=== PATIENT | male | born 1975 | race Hispanic/Latino ===

== ENCOUNTER 2022-05-22 15:46 | Emergency (ER) | payer SELFPAY ==
[2022-05-22] MEDS ORDERED: Boostrix 0.5 ML (Tdap) VIAL (>/=7 yrs of age) ONE (16:38)
[2022-05-22] MEDS ORDERED: Ketorolac Tromethamine 60 MG/2 ML VIAL ONE (16:38)
[2022-05-22] MEDS ORDERED: Bacitracin 1 PK ONE (16:38)
== END 2022-05-22 17:11 | disposition home or self-care (01) ==
LOC: MADERS 15:46
DX: S62.633A Displaced fracture of distal phalanx of left middle finger, initial encounter for closed fracture (principal); E11.9 Type 2 diabetes mellitus without complications; W20.8XXA Other cause of strike by thrown, projected or falling object, initial encounter; Z79.84 Long term (current) use of oral hypoglycemic drugs; Z23 Encounter for immunization
CPT/HCPCS: 90471; 90715; J1885